=== PATIENT | female | born 1990 | race Caucasian/White ===

== ENCOUNTER 2016-09-21 09:35 | Emergency (ER) | payer MEDICAID ==
[~2016-09-21] VITALS: Ht 170.2 cm; Wt 68.8 kg
[~2016-09-21 09:35] MED LIST: PREN0.01 PO
[2016-09-21 09:42] VITALS: BP 100/60; PULSE 78; RESP 16; TEMP 98.5; O2SAT 100
[2016-09-21] MEDS ORDERED: AMOX875T PO (10:00)
[2016-09-21] MEDS ORDERED: TYLETAB34 PO (10:00)
--- NOTE | 2016-09-21 10:00 | PD ---
HPI . Toothache Chief Complaint: Oral / Dental Pain or Problem Time Seen by Provider: 09:53 Travel History International Travel<30 days: No Contact w/Intl Traveler<30days: No Traveled to known affect area: No History of Present Illness HPI Patient presents with a toothache which has been present for the last 3 days. It is getting progressively worse. She rates her pain as 7 out of 10. Pain has been unrelieved by Tylenol and Orajel. No exacerbating factor. PFSH Past Medical History Medical History: Denies Significant Hx Diminished Hearing: No Immunizations Current: Yes ?: LMP: 04/03/17 Past Surgical History Section: Yes (X 3) Tonsillectomy: Yes Social History Alcohol Use: No Tobacco Use: No Substance Use: No Allergies-Medications (Allergen,Severity, Reaction): Coded Allergies: No Known Allergies (Verified , 09/21/16) Reported Meds & Prescriptions Reported Meds & Active Scripts Active Reported Vit ( Plus) (Prenat Multivit/[employer]/Iron/Folic Ac) Tab 1 Tab PO DAILY Review of Systems Except as stated in HPI: all other systems reviewed are Neg General / Constitutional: No: Fever HENT: Positive: Dental Difficulties Gastrointestinal: Positive: Other Physical Exam Narrative GENERAL: Awake and alert and in no acute distress. SKIN: Warm and dry. HEAD: Atraumatic. Normocephalic. Mild swelling of the left cheek. Severe dental caries. Tooth #13 is a to the gumline and tooth #14 has lost about 50% of its enamel. Both are tender to percussion. There is some mild swelling of the gums. EYES: Pupils equal and round. NECK: Trachea midline. CARDIOVASCULAR: Regular rate and rhythm. RESPIRATORY: No accessory muscle use. MUSCULOSKELETAL: No obvious deformities. No edema. NEUROLOGICAL: Awake and alert. No obvious cranial nerve deficits. Motor grossly within normal limits. Normal speech. PSYCHIATRIC: Appropriate mood and affect; insight and judgment normal. Data Data Last Documented VS Vital Signs Date Time Temp Pulse Resp B/P Pulse Ox O2 Delivery O2 Flow Rate FiO2 09/21/16 09:42 98.5 78 16 100/60 100 MDM Medical Decision Making Medical Screen Exam Complete: Yes Emergency Medical Condition: Yes Differential Diagnosis Differential diagnosis of a toothache includes but is not limited to dental caries, dental abscess, gingivitis, drug-seeking behavior. Narrative Course Patient presents with a toothache. She appears to have a dental abscess. She is . I will treat her with amoxicillin and Tylenol No. 3. Diagnosis Primary Impression: Dental abscess Patient Instructions: Dental Abscess (ED), General Instructions Med/Other Pt SpecificInfo: Prescription(s) given Scripts Acetaminophen-Codeine (Tylenol-Codeine #3)300-30 mg Tab1 Tab PO Q4H PRN (PAIN) # 12 TAB Ref 0 Prov:Ana Smith MD 09/21/16 Amoxicillin 875 Mg Svb627 Mg PO BID 10 Days Ref 0 Prov:Ana Smith MD 09/21/16 Disposition: 01 DISCHARGE HOME Condition: Stable Ana Smith MD September 21, 2016 10:00
== END 2016-09-21 10:30 | disposition home or self-care (01) ==
LOC: PHEFT 09:35
DX: K04.7 Periapical abscess without sinus (principal); Z33.1 Pregnant state, incidental; Z3A.00 Weeks of gestation of pregnancy not specified
CPT/HCPCS: 99282